=== PATIENT | female | born 1995 | race Native Hawaiian/Other Pacific Islander ===

== ENCOUNTER 2019-03-13 17:49 | Emergency (ER) | payer MEDICAID ==
[2019-03-13] MEDS ORDERED: ONDANSETRON 4 MG/2 ML INJ IV ONE (19:47)
[2019-03-13 20:24] LABS: Alanine Aminotransferase 14 units/L (7-56); Albumin 3.5 g/dL (3.9-5); BUN/Creatinine Ratio 17; Blood Urea Nitrogen 5 mg/dL (7-17); Calcium 8.4 mg/dL (8.4-10.2); Hemolysis Index 4
[2019-03-13 20:26] LABS: Basophils % (Auto) 0.6 % (0.0-1.8); Eosinophils # (Auto) 0.1 K/mm3 (0.0-0.4); Eosinophils % (Auto) 0.9 % (0.0-4.3); Hematocrit 30.9 % (30.3-42.9); Hemoglobin 11.1 gm/dl (10.1-14.3); Lymphocytes # (Auto) 1.5 K/mm3 (1.2-5.4); Lymphocytes % (Auto) 22.4 % (13.4-35.0); Mean Corpuscular HGB Conc 36 % (30-34); Mean Corpuscular Volume 89 fl (79-97); Monocytes # (Auto) 0.3 K/mm3 (0.0-0.8); Platelet Count 194 K/mm3 (140-440); Red Blood Count 3.46 M/mm3 (3.65-5.03); Red Cell Distribution Width 14.6 % (13.2-15.2)
[2019-03-13 20:29] LABS: Bacteria,Urine 2+ /HPF (Negative); Bilirubin,Urine NEG (Negative); Blood,Urine NEG (Negative); Color,Urine Yellow (Yellow); Mucus,Urine FEW /HPF; Protein,Urine <15 mg/dL mg/dL (Negative); Urobilinogen,Urine < 2.0 mg/dL (<2.0)
[2019-03-13 20:36] LABS: INR 1.09 (0.87-1.13)
[2019-03-13 20:37] LABS: Partial Thromboplastin Time 28.2 Sec. (24.2-36.6)
[2019-03-13] MEDS ORDERED: BUTORPHANOL 2 MG/1 ML INJ IV ONE (20:47)
--- NOTE | 2019-03-13 21:13 | Ultrasound Report ---
OB ultrasound FINDINGS: Single fetus is identified in transverse presentation with the head to the maternal right. heart rate is 147 bpm. Placenta is posterior and free of the os. No gross anomalies are seen. A ppropriate measurements reveal an MA of 18 weeks 1 day for an DIANA of 08/13/2019. This correlates with t he clinical dates. Cervix measures 3.6 cm and is closed. No hemorrhage is seen. No abnormality demons trated. Signer Name: Torres Mcclain MD Signed: 03/13/2019 9:09 PM Workstation Name: [id number]
--- NOTE | 2019-03-13 22:32 | Emergency Department Report ---
ED General Adult HPI - General Chief complaint: Abdominal Pain Stated complaint: ABD PAIN Time Seen by Provider: 03/13/19 18:14 Source: patient, EMS Mode of arrival: Stretcher Limitations: No Limitations - History of Present Illness Initial comments: The Patient presents to the emergency department with a chief complaint of lower abdominal pain. Patient states she is approximately 4 months and this is her fourth with 2 live births and one miscarriage. Patient states she is also having some burning with urination but denies vaginal discharge or bleeding. She denies any abdominal trauma or abuse. -: Gradual Location: abdomen Severity scale (0 -10): 5 Consistency: constant Improves with: none Worsens with: none Associated Symptoms: denies other symptoms Treatments Prior to Arrival: none - Related Data Previous Rx's Medication Instructions Recorded Last Taken Type Acetaminophen/Codeine [Tylenol 1 tab PO Q6H PRN #15 tab 03/13/19 Unknown Rx /Codeine # 3 tab] Ondansetron [Zofran Odt] 4 mg PO Q4HR PRN #20 tab.rapdis 03/13/19 Unknown Rx cephALEXin [Keflex] 500 mg PO Q6HR #40 capsule 03/13/19 Unknown Rx Allergies Allergy/AdvReac Type Severity Reaction Status Date / Time No Known Allergies Allergy Unverified 03/06/17 20:55 ED Review of Systems ROS: Stated complaint: ABD PAIN Other details as noted in HPI Comment: All other systems reviewed and negative Constitutional: denies: chills, fever Eyes: denies: eye pain, eye discharge, vision change ENT: denies: ear pain, throat pain Respiratory: denies: cough, shortness of breath, wheezing Cardiovascular: denies: chest pain, palpitations Endocrine: no symptoms reported Gastrointestinal: abdominal pain. denies: nausea, diarrhea Genitourinary: denies: urgency, dysuria, discharge Musculoskeletal: denies: back pain, joint swelling, arthralgia Skin: denies: rash, lesions Neurological: denies: headache, weakness, paresthesias Psychiatric: denies: anxiety, depression Hematological/Lymphatic: denies: easy bleeding, easy bruising ED Past Medical Hx - Past Medical History Hx Hypertension: No Hx Diabetes: No Hx Deep Vein Thrombosis: No Hx Renal Disease: No Hx Sickle Cell Disease: No Hx Seizures: No Hx Asthma: No Hx HIV: No - Social History Smoking Status: Never Smoker Substance Use Type: None - Medications Home Medications: Home Medications Medication Instructions Recorded Confirmed Last Taken Type Acetaminophen/Codeine [Tylenol 1 tab PO Q6H PRN #15 tab 03/13/19 Unknown Rx /Codeine # 3 tab] Ondansetron [Zofran Odt] 4 mg PO Q4HR PRN #20 tab.rapdis 03/13/19 Unknown Rx cephALEXin [Keflex] 500 mg PO Q6HR #40 capsule 03/13/19 Unknown Rx ED Physical Exam - General Limitations: No Limitations General appearance: alert, in no apparent distress - Head Head exam: Present: atraumatic, normocephalic - Eye Eye exam: Present: normal appearance, PERRL, EOMI - ENT ENT exam: Present: mucous membranes moist - Neck Neck exam: Present: normal inspection - Respiratory Respiratory exam: Present: normal lung sounds bilaterally. Absent: respiratory distress - Cardiovascular Cardiovascular Exam: Present: regular rate, normal rhythm. Absent: systolic murmur, diastolic murmur, rubs, gallop - GI/Abdominal GI/Abdominal exam: Present: soft, normal bowel sounds, other (gravid uterus). Absent: distended, tenderness - Extremities Exam Extremities exam: Present: normal inspection - Back Exam Back exam: Present: normal inspection - Neurological Exam Neurological exam: Present: alert, oriented X3, CN II-XII intact. Absent: motor sensory deficit - Psychiatric Psychiatric exam: Present: normal affect, normal mood - Skin Skin exam: Present: warm, dry, intact, normal color. Absent: rash ED Course Vital Signs 03/13/19 03/13/19 18:19 18:22 Temperature 98.6 F 98.6 F Pulse Rate 75 75 Respiratory 20 20 Rate Blood Pressure 107/68 Blood Pressure 107/68 [Left] O2 Sat by Pulse 98 99 Oximetry ED Medical Decision Making - Lab Data Result diagrams: 03/13/19 19:51 03/13/19 19:51 Lab Results 03/13/19 03/13/19 03/13/19 Range/Units 19:51 19:51 19:51 WBC 6.6 (4.5-11.0) K/mm3 RBC 3.46 L (3.65-5.03) M/mm3 Hgb 11.1 (10.1-14.3) gm/dl Hct 30.9 (30.3-42.9) % MCV 89 (79-97) fl MCH 32 (28-32) pg MCHC 36 H (30-34) % RDW 14.6 (13.2-15.2) % Plt Count 194 (140-440) K/mm3 Lymph % (Auto) 22.4 (13.4-35.0) % [place] % (Auto) 5.0 (0.0-7.3) % Eos % (Auto) 0.9 (0.0-4.3) % Baso % (Auto) 0.6 (0.0-1.8) % Lymph # 1.5 (1.2-5.4) K/mm3 [place] # 0.3 (0.0-0.8) K/mm3 Eos # 0.1 (0.0-0.4) K/mm3 Baso # 0.0 (0.0-0.1) K/mm3 Seg Neutrophils % 71.1 H (40.0-70.0) % Seg Neutrophils # 4.7 (1.8-7.7) K/mm3 PT 14.0 (12.2-14.9) Sec. INR 1.09 (0.87-1.13) APTT 28.2 (24.2-36.6) Sec. Sodium 137 (137-145) mmol/L Potassium 3.5 L (3.6-5.0) mmol/L Chloride 107.5 H (98-107) mmol/L Carbon Dioxide 17 L (22-30) mmol/L Anion Gap 16 mmol/L BUN 5 L (7-17) mg/dL Creatinine 0.3 L (0.7-1.2) mg/dL Estimated GFR > 60 ml/min BUN/Creatinine Ratio 17 % Glucose 90 (65-100) mg/dL Calcium 8.4 (8.4-10.2) mg/dL Total Bilirubin 0.70 (0.1-1.2) mg/dL AST 15 (5-40) units/L ALT 14 (7-56) units/L Alkaline Phosphatase 62 (35-129) units/L Total Protein 6.7 (6.3-8.2) g/dL Albumin 3.5 L (3.9-5) g/dL Albumin/Globulin Ratio 1.1 % Urine Color (Yellow) Urine Turbidity (Clear) Urine pH (5.0-7.0) Ur Specific [place] (1.003-1.030) Urine Protein (Negative) mg/dL Urine Glucose (UA) (Negative) mg/dL Urine Ketones (Negative) mg/dL Urine Blood (Negative) Urine Nitrite (Negative) Urine Bilirubin (Negative) Urine Urobilinogen (<2.0) mg/dL Ur Leukocyte Esterase (Negative) Urine WBC (Auto) (0.0-6.0) /HPF Urine RBC (Auto) (0.0-6.0) /HPF U Epithel Cells (Auto) (0-13.0) /HPF Urine Bacteria (Auto) (Negative) /HPF Urine Mucus /HPF Urine Yeast (Budding) /HPF 03/13/19 Range/Units 20:13 WBC (4.5-11.0) K/mm3 RBC (3.65-5.03) M/mm3 Hgb (10.1-14.3) gm/dl Hct (30.3-42.9) % MCV (79-97) fl MCH (28-32) pg MCHC (30-34) % RDW (13.2-15.2) % Plt Count (140-440) K/mm3 Lymph % (Auto) (13.4-35.0) % [place] % (Auto) (0.0-7.3) % Eos % (Auto) (0.0-4.3) % Baso % (Auto) (0.0-1.8) % Lymph # (1.2-5.4) K/mm3 [place] # (0.0-0.8) K/mm3 Eos # (0.0-0.4) K/mm3 Baso # (0.0-0.1) K/mm3 Seg Neutrophils % (40.0-70.0) % Seg Neutrophils # (1.8-7.7) K/mm3 PT (12.2-14.9) Sec. INR (0.87-1.13) APTT (24.2-36.6) Sec. Sodium (137-145) mmol/L Potassium (3.6-5.0) mmol/L Chloride (98-107) mmol/L Carbon Dioxide (22-30) mmol/L Anion Gap mmol/L BUN (7-17) mg/dL Creatinine (0.7-1.2) mg/dL Estimated GFR ml/min BUN/Creatinine Ratio % Glucose (65-100) mg/dL Calcium (8.4-10.2) mg/dL Total Bilirubin (0.1-1.2) mg/dL AST (5-40) units/L ALT (7-56) units/L Alkaline Phosphatase (35-129) units/L Total Protein (6.3-8.2) g/dL Albumin (3.9-5) g/dL Albumin/Globulin Ratio % Urine Color Yellow (Yellow) Urine Turbidity Slightly-cloudy (Clear) Urine pH 6.0 (5.0-7.0) Ur Specific [place] 1.008 (1.003-1.030) Urine Protein <15 mg/dl (Negative) mg/dL Urine Glucose (UA) Neg (Negative) mg/dL Urine Ketones 20 (Negative) mg/dL Urine Blood Neg (Negative) Urine Nitrite Pos (Negative) Urine Bilirubin Neg (Negative) Urine Urobilinogen < 2.0 (<2.0) mg/dL Ur Leukocyte Esterase Lg (Negative) Urine WBC (Auto) 9.0 H (0.0-6.0) /HPF Urine RBC (Auto) 10.0 (0.0-6.0) /HPF U Epithel Cells (Auto) 9.0 (0-13.0) /HPF Urine Bacteria (Auto) 2+ (Negative) /HPF Urine Mucus Few /HPF Urine Yeast (Budding) 1+ /HPF - Radiology Data Radiology results: report reviewed - Medical Decision Making results discussed with patient Critical care attestation.: If time is entered above; I have spent that time in minutes in the direct care of this critically ill patient, excluding procedure time. ED Disposition Clinical Impression: UTI (urinary tract infection), Abdominal pain in Disposition: TO HOME OR SELFCARE Is pt being admited?: No Does the pt Need Aspirin: No Condition: Stable Instructions: Abdominal Pain (ED), Urinary Tract Infection in Women (ED), Abdominal Pain in (ED) Additional Instructions: return if worse Referrals: BASHIR MCGRAWEMERY MD CARSON [Primary Care Provider] - 3-5 Days [facility] [Provider Group] - 3-5 Days Time of Disposition: 22:31
[2019-03-13 22:44] VITALS: BP 110/68
== END 2019-03-13 22:44 | disposition home or self-care (01) ==
LOC: ED 17:49
DX: O23.42 Unspecified infection of urinary tract in pregnancy, second trimester (principal); Z3A.16 16 weeks gestation of pregnancy; Z79.899 Other long term (current) drug therapy
CPT/HCPCS: 36415; 76805; 80053; 81001; 85025; 85610; 85730; 87076; 87086; 87186; 96374; 96375; 99284; J0595; J2405

== ENCOUNTER 2019-07-23 08:58 | Outpatient (CLI) | payer MEDICAID ==
[2019-07-23] MEDS ORDERED: LACTATED RINGERS 1,000 ML ONE (12:03)
[2019-07-23 12:24] VITALS: BP 130/72
[2019-07-23] MEDS ORDERED: LACTATED RINGERS 1,000 ML IV SCH (13:00)
== END 2019-07-23 13:45 | disposition home or self-care (01) ==
LOC: TRG 08:58
PROVIDERS: ATTEND Obstetrics & Gynecology
DX: O62.9 Abnormality of forces of labor, unspecified (principal); Z3A.37 37 weeks gestation of pregnancy
CPT/HCPCS: 59025; 96360; 96361; J7120

== ENCOUNTER 2021-07-24 13:53 | Emergency (ER) | payer MEDICAID ==
[2021-07-24] MEDS ORDERED: ACETAMINOPHEN 500 MG TAB PO ONE (15:38)
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
[2021-07-24 16:56] VITALS: BP 118/78
--- NOTE | 2021-07-25 09:16 | Electrocardiograph Report ---
[facility] Test Date: 2021-07-24 Test Time: 14:05:11 Pat Name: ASHLEY CAMPOS Department: Room: Gender: F Civil Engineering Professional: NURSE : 1995 Requested By: JUNIOR BERG Order Number: [id number] Reading MD: Abby Souza Measurements Intervals [place] Rate: 80 P: -4 HI: 168 QRS: 14 QRSD: 86 T: 14 QT: 378 QTc: 436 Interpretive Statements Sinus rhythm No previous ECG available for comparison Electronically Signed On 07-25-2021 9:15:37 EDT by Abby Souza
== END 2021-07-24 16:56 | disposition home or self-care (01) ==
LOC: EEVIPCON 13:53 → ED 13:53
DX: O26.891 Other specified pregnancy related conditions, first trimester (principal); S20.219A Contusion of unspecified front wall of thorax, initial encounter; S00.33XA Contusion of nose, initial encounter; R45.6 Violent behavior; Z3A.01 Less than 8 weeks gestation of pregnancy; Y08.89XA Assault by other specified means, initial encounter; Y93.9 Activity, unspecified; Y92.89 Other specified places as the place of occurrence of the external cause; Y99.8 Other external cause status
CPT/HCPCS: 93005; 99283

== ENCOUNTER 2021-12-07 15:01 | Outpatient (CLI) | payer MEDICAID ==
--- NOTE | 2021-12-07 17:56 | Ultrasound Report ---
ULTRASOUND BIOPHYSICAL PROFILE INDICATION: VAGINAL BLEEDING ON URINIATION AND PRESSURE - BPP. COMPARISON: None available. FINDINGS: breathing movement = 2 Gross body movement = 2 tone = 2 Qualitative amniotic fluid volume = 2 Total biophysical score = 8/8 Amniotic fluid index is 30.7 cm. Presentation is Breech. heart rate is 1:30 beats per minute. No placental abnormalities are seen. Inferior placenta/cervix is not well-visualized on these images. IMPRESSION: biophysical profile = 12/12 Polyhydramnios. lie is breech. Signer Name: Rohith Goel MD Signed: 12/07/2021 5:52 PM Workstation Name: [id number]
[2021-12-07] MEDS ORDERED: BETAMET ACET/BETAMET NA PH 6 MG/ML INJ 5 ML MDV IM ONE (18:00)
[2021-12-07] MEDS ORDERED: LACTATED RINGERS 500 ML IV ONE (18:00)
[2021-12-07 18:13] VITALS: BP 116/80
[2021-12-07] MEDS ORDERED: ACETAMINOPHEN 500 MG TAB PO SCH (19:01)
[2021-12-07 20:04] LABS: Color,Urine Yellow (Yellow)
[2021-12-07 20:06] LABS: Bilirubin,Urine Negative (Negative); Blood,Urine Negative (Negative); PH,Urine 7.5 (5.0-7.0); Urobilinogen,Urine 0.2 mg/dL (<2.0)
[2021-12-07 20:08] LABS: Bacteria,Urine 4+ /HPF (Negative); Mucus,Urine FEW /HPF
== END 2021-12-07 21:37 | disposition left against medical advice (07) ==
LOC: TRG 15:01 → APU 15:01 → TRG 21:37
PROVIDERS: ATTEND Obstetrics & Gynecology
DX: O40.3XX0 Polyhydramnios, third trimester, not applicable or unspecified (principal); O32.1XX0 Maternal care for breech presentation, not applicable or unspecified; O99.013 Anemia complicating pregnancy, third trimester; D64.9 Anemia, unspecified; Z3A.31 31 weeks gestation of pregnancy
CPT/HCPCS: 76815; 76819; 81001; 96360; 96361; 96372; J0702; J7120

== ENCOUNTER 2022-01-22 20:25 | Inpatient (IN) | payer MEDICAID ==
--- NOTE | 2022-01-22 23:15 | Ultrasound Report ---
ULTRASOUND OBSTETRIC LIMITED ULTRASOUND BIOPHYSICAL PROFILE INDICATION / CLINICAL INFORMATION: R/O Labor. - Clinical Gestational Age (GA) in weeks, days: 37 weeks 6 days TECHNIQUE: Transabdominal. COMPARISON: December 2021 FINDINGS: BREATHING MOVEMENT = 2 GROSS BODY MOVEMENT = 2 TONE = 2 QUALITATIVE AMNIOTIC FLUID VOLUME = 2 TOTAL BIOPHYSICAL SCORE = 8/8 HEART RATE (beats per minute): 140 AMNIOTIC FLUID INDEX (cm) = 14.3 (normal = 7-24 cm) PRESENTATION: Cephalic. ADDITIONAL FINDINGS: None. IMPRESSION: 1. Biophysical Score = 8/8 See above for additional data. Signer Name: Olu Balderas MD Signed: 01/22/2022 11:11 PM Workstation Name: [email or web address]
[2022-01-22] MEDS ORDERED: BUTORPHANOL 2 MG/1 ML INJ IV PRN (23:29)
[2022-01-22] MEDS ORDERED: OXYTOCIN 10 UNIT/1 ML INJ IM PRN (23:29)
[2022-01-22] MEDS ORDERED: TERBUTALINE 1 MG/1 ML INJ SUB-Q PRN (23:29)
[2022-01-22] MEDS ORDERED: MINERAL OIL 30 ML ORAL LIQD PO PRN (23:29)
[2022-01-22] MEDS ORDERED: ePHEDrine SULFATE 50 MG/1 ML INJ IV PRN (23:29)
[2022-01-22] MEDS ORDERED: miSOPROStol 200 MCG TAB PR PRN (23:29)
[2022-01-22] MEDS ORDERED: LOPERAMIDE 2 MG CAP PO PRN (23:29)
[2022-01-22] MEDS ORDERED: ACETAMINOPHEN 325 MG TAB PO PRN (23:29)
[2022-01-22] MEDS ORDERED: METHYLERGONOVINE MALEATE 0.2 MG/ML VIAL IM PRN (23:29)
[2022-01-22] MEDS ORDERED: CARBOPROST TROMETHAMINE 250 MCG/1 ML INJ IM PRN (23:29)
[2022-01-22] MEDS ORDERED: OXYTOCIN DRIP 30 UNITS/500 ML BAG IV SCH (23:45)
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
[2022-01-23 00:35] LABS: Hematocrit 36.6 % (30.3-42.9); Hemoglobin 12.7 gm/dl (10.1-14.3); Mean Corpuscular HGB Conc 35 % (30-34); Mean Corpuscular Volume 79 fl (79-97); Platelet Count 208 K/mm3 (140-440); Red Blood Count 4.61 M/mm3 (3.65-5.03)
[2022-01-23] MEDS: fentaNYL 100 MCG/2 ML INJ IV PRN ×2 (00:58→06:50)
[2022-01-23] MEDS ORDERED: OXYTOCIN DRIP 30 UNITS/500 ML BAG IV SCH (04:00)
[2022-01-23] MEDS ORDERED: ONDANSETRON 4 MG/2 ML INJ IV PRN (06:37)
--- NOTE | 2022-01-23 06:56 | Event Note ---
Date: 01/23/22 S: Feeling contractions, nauseous O: VE /-1, Arom clear. CAT I , Pit at 6mu A: IUP @ 37.6 weeks P: Continue augmentation
[2022-01-23] MEDS ORDERED: ceFAZolin/NS 1 GM/50 ML 1 GM/50 ML BAG IV SCH (08:00)
[2022-01-23] MEDS: LACTATED RINGERS 1,000 ML IV SCH ×2 (08:09→12:09)
[2022-01-23] MEDS ORDERED: DIPHENOXYLATE/ATROPINE TAB PO PRN (09:00)
[2022-01-23] MEDS ORDERED: DIPHENOXYLATE/ATROPINE TAB ONE (09:47)
[2022-01-23 10:11] LABS: Basophils # (Auto) 0.1 K/mm3 (0.0-0.1); Basophils % (Auto) 0.4 % (0.0-1.8); Eosinophils % (Auto) 0.1 % (0.0-4.3); Hematocrit 31.4 % (30.3-42.9); Hemoglobin 10.4 gm/dl (10.1-14.3); Lymphocytes # (Auto) 2.4 K/mm3 (1.2-5.4); Lymphocytes % (Auto) 14.3 % (13.4-35.0); Mean Corpuscular HGB Conc 33 % (30-34); Mean Corpuscular Volume 84 fl (79-97); Monocytes # (Auto) 0.6 K/mm3 (0.0-0.8); Monocytes % (Auto) 3.4 % (0.0-7.3); Platelet Count 273 K/mm3 (140-440); Red Blood Count 3.75 M/mm3 (3.65-5.03); Red Cell Distribution Width 13.9 % (13.2-15.2)
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
--- NOTE | 2022-01-23 10:48 | Ultrasound Report ---
US pelvic limited INDICATION: R/O RETAINED PLACENTA. TECHNIQUE: Limited pelvic ultrasound COMPARISON: 01/22/2022 FINDINGS: Uterus is enlarged consistent with recent measuring 17.6 cm in length. The endometrium is heterogeneous and thick with some internal vascularity, measuring 3 cm in diameter . IMPRESSION: 1. Heterogeneous and thickened endometrium with some internal vascularity which may indicate some ret ained products of conception. Signer Name: Anderson Alvarez MD Signed: 01/23/2022 10:44 AM Workstation Name: [id number]
[2022-01-23] MEDS ORDERED: PROMETHAZINE 25 MG TAB PO PRN (11:00)
[2022-01-23] MEDS ORDERED: LANOLIN/ZINC/DIMETHICONE (LANSINOH) 7 GM TP PRN (11:00)
[2022-01-23] MEDS ORDERED: diphenhydrAMINE 25 MG CAP PO PRN (11:00)
[2022-01-23] MEDS ORDERED: HYDROcodone/ACETAMINOPHEN 5-325 MG TAB PO PRN (11:00)
[2022-01-23] MEDS: IBUPROFEN 800 MG TAB PO SCH ×2 (12:37→23:52)
--- NOTE | 2022-01-23 14:19 | Event Note ---
Date: 01/23/22 Discussed ultrasound findings with patient re possibility of retained placental tissues needing to be surgically removed. Patient was rude but was clear in conveying her refusal to any procedures to reconcile the findings from ultrasonography. She was reassured her autonomy will be respected always.
[2022-01-23] MEDS ORDERED: miSOPROStol 200 MCG TAB PR SCH (16:00)
[2022-01-23] MEDS ORDERED: FERROUS SULFATE 325 MG TAB PO SCH (22:00)
[2022-01-24] MEDS: IBUPROFEN 800 MG TAB PO SCH ×2 (05:02→10:21)
--- NOTE | 2022-01-24 08:36 | Progress Note ---
Assessment and Plan A: PPD # 1 - stable P: Try to get records from [facility] CNM from [facility] states she did not have a GBS done, Last visit was at 32 weeks gestation Discharge home tomorrow Subjective - Subjective Date of service: 01/24/22 Principal diagnosis: PPD # 1 - stable Interval history: Feeling ok, no complaints Patient reports: appetite normal [place]: doing well Objective - Vital Signs Latest vital signs: Vital Signs Temp Pulse Resp BP Pulse Ox Pulse Ox 01/24/22 07:56 98 01/23/22 23:45 98.7 F 99 H 20 100/59 98 01/23/22 20:27 99.2 F 91 H 20 110/71 98 01/23/22 15:30 97 01/23/22 15:19 98.4 F 90 20 110/71 98 01/23/22 13:05 114 H 98 01/23/22 13:04 85 95/57 01/23/22 13:00 87 98 01/23/22 12:55 80 98 01/23/22 12:50 82 98 01/23/22 12:49 83 98/59 01/23/22 12:45 83 98 01/23/22 12:40 83 99 01/23/22 12:35 88 92/62 99 01/23/22 12:30 84 99 01/23/22 12:25 91 H 99 01/23/22 12:20 92 H 87/60 98 01/23/22 12:15 84 99 01/23/22 12:10 94 H 100 01/23/22 12:05 102 H 104/69 99 01/23/22 12:00 82 99 01/23/22 11:55 82 98 01/23/22 11:50 87 96/52 98 01/23/22 11:45 90 99 01/23/22 11:40 89 100 01/23/22 11:35 98.7 F 93 H 18 93/54 96 01/23/22 11:30 89 97 01/23/22 11:25 89 98 01/23/22 11:20 95 H 117/60 98 01/23/22 11:15 99 H 99 01/23/22 11:10 97 H 99 01/23/22 11:05 93 H 93/51 99 01/23/22 11:00 98 H 97 01/23/22 10:55 84 98 01/23/22 10:50 86 98 01/23/22 10:49 91 H 90/51 01/23/22 10:45 80 98 01/23/22 10:40 91 H 99 01/23/22 10:35 89 88/50 98 01/23/22 10:32 83 94/53 01/23/22 10:30 85 98 01/23/22 10:27 78 91/52 01/23/22 10:25 84 98 01/23/22 10:20 91 H 97 01/23/22 10:15 113 H 99 01/23/22 10:10 77 97 01/23/22 10:05 87 96 01/23/22 10:00 93 H 97 01/23/22 09:55 108 H 97 01/23/22 09:50 109 H 99 01/23/22 09:45 148 H 96 01/23/22 09:44 130 H 89/64 01/23/22 09:43 90 01/23/22 09:40 240 H 87 01/23/22 09:37 92 01/23/22 09:32 127 H 97/63 01/23/22 09:31 71 L 01/23/22 09:29 65 74 L 01/23/22 09:26 74 L 01/23/22 09:21 89 98 01/23/22 09:16 112 H 97 01/23/22 09:11 143 H 98 01/23/22 09:05 114 H 93 01/23/22 09:02 81 119/62 92 01/23/22 09:00 86 97 01/23/22 08:55 118 H 97 01/23/22 08:51 103 H 92 01/23/22 08:50 92 H 98 01/23/22 08:45 75 99 01/23/22 08:40 105 H 98 01/23/22 08:35 90 98 Intake and Output 01/23/22 01/24/22 01/24/22 22:59 06:59 14:59 Intake Total 240 300 Output Total 300 Balance -60 300 Intake: Oral 120 300 Intake, Free Water 120 Output: Urine 300 Void 300 Other: Total, Intake Amount 120 300 Total, Output Amount 100 # Voids Self-Catheterization 3 Void 1 - Exam Breasts: Present: deferred Cardiovascular: Present: Regular rate Lungs: Present: Clear to auscultation Abdomen: Present: soft Vulva: both: normal Uterus: Present: fundal height below umbilicus Deep Tendon Reflex Grade: Normal +2 - Labs Labs: Abnormal lab results 01/23/22 Range/Units 10:05 WBC 16.8 H (4.5-11.0) K/mm3 Seg Neutrophils % 81.8 H (40.0-70.0) % Seg Neutrophils # 13.7 H (1.8-7.7) K/mm3
--- NOTE | 2022-01-24 08:37 | Discharge Summary ---
Providers - Providers Date of Admission: 01/22/22 23:29 Date of discharge: 01/25/22 Attending physician: KEO VENTURA MD Primary care physician: KEO VENTURA MD Hospitalization Reason for admission: active labor Delivery: Laceration: none complications: retained placenta (manual removal, trailing membranes), other (PPH) Discharge diagnosis: IUP at term delivered [place] baby: female Hospital course: Had ultrasound done after delivery to look for retained placenta. Pt declined D&C. Quants drawn last night and this morning. Repeat U/S to be done 9/ in am Condition at discharge: Good Disposition: 01 HOME / SELF CARE / HOMELESS Plan - Provider Discharge Summary Activity: routine, no sex for 6 weeks, no strenuous exercise Diet: routine Instructions: routine Additional instructions: [] Smoking cessation referral if applicable(refer to patient education folder for contact #) [] Refer to [facility]'s [facility] Booklet Call your doctor immediately for: * Fever > 100.5 * Heavy vaginal bleeding ( >1 pad per hour) * Severe persistent headache * Shortness of breath * Reddened, hot, painful area to leg or breast * Drainage or odor from incision. * Keep incision clean and dry at all times and follow doctor's instructions regarding bathing/showering - Follow up plan Follow up: KEO VENTURA MD [Primary Care Provider] - 6 Weeks
[2022-01-24] MEDS: PRENATAL VIT27-FE FUMARATE-FOLIC ACID VIT TAB PO SCH (10:21)
[2022-01-24 12:00] LABS: Basophils % (Auto) 0.3 % (0.0-1.8); Eosinophils % (Auto) 0.2 % (0.0-4.3); Lymphocytes # (Auto) 1.4 K/mm3 (1.2-5.4); Lymphocytes % (Auto) 19.6 % (13.4-35.0); Mean Corpuscular HGB Conc 34 % (30-34); Mean Corpuscular Volume 80 fl (79-97); Monocytes # (Auto) 0.3 K/mm3 (0.0-0.8); Monocytes % (Auto) 4.8 % (0.0-7.3); Platelet Count 155 K/mm3 (140-440); Red Blood Count 2.18 M/mm3 (3.65-5.03); Red Cell Distribution Width 13.9 % (13.2-15.2)
[2022-01-24 12:07] LABS: Hematocrit 17.5 % (30.3-42.9); Hemoglobin 5.9 gm/dl (10.1-14.3)
[2022-01-24] MEDS ORDERED: ACETAMINOPHEN 325 MG TAB PO NR (12:20)
[2022-01-24] MEDS ORDERED: diphenhydrAMINE 25 MG CAP PO NR (12:21)
[2022-01-24] MEDS ORDERED: SODIUM CHLORIDE 0.9% 500 ML 500 ML IV NR (13:00)
--- NOTE | 2022-01-24 13:21 | Ultrasound Report ---
ULTRASOUND PELVIS INDICATION / CLINICAL INFORMATION: Clot vs. Retained POC in [place] . TECHNIQUE: Transvaginal. Duplex Color Doppler used: Yes. COMPARISON: Limited pelvic ultrasound performed yesterday. FINDINGS: UTERUS: - Appearance: Enlarged uterus. - Size (cm): 15.8 x 11.8 x 7.7 cm. - Endometrial Complex (if present): Thickened with moderately heterogeneous appearance, similar to pr evious exam. Thickness in cm (if measured) = 3.1 cm. - Mass or cyst: None. - Additional findings: None. RIGHT ADNEXA: The right ovary is not visualized. LEFT ADNEXA: The left ovary is not visualized. URINARY BLADDER: Not well-visualized. FREE FLUID: None. ADDITIONAL FINDINGS: None. IMPRESSION: 1. Thickened, heterogeneous endometrium is again visualized with mild internal vascularity suggesting retained products of conception. Scribed by: Maeve Shafer RDMS, MERYL, ANTHONY Scribed: 01/24/2022 11:14 AM I have reviewed the images, agree with this report, and edited this report as needed. Signer Name: Marty Villalobos MD Signed: 01/24/2022 1:17 PM Workstation Name: [id number]
[2022-01-25 01:37] LABS: Hemoglobin 7.9 gm/dl (10.1-14.3)
[2022-01-25] MEDS: PRENATAL VIT27-FE FUMARATE-FOLIC ACID VIT TAB PO SCH (10:05)
[2022-01-25] MEDS: IBUPROFEN 800 MG TAB PO SCH ×2 (10:05)
[2022-01-25 17:54] VITALS: BP 111/69
== END 2022-01-25 23:10 | disposition home or self-care (01) | DRG 774 ==
LOC: TRG 20:25 → APU 20:27 → EEVIPCON 23:29 → UNDOADMOB 23:29 → INTOOBSV 23:29 → LD 23:29 → TRG 23:29 → OBSVTOIN 23:29 → LD 01-23 10:13 → OBSVTOIN 01-23 10:13 → OB 01-23 15:15 → LD 01-23 15:15
PROVIDERS: ADMIT Obstetrics & Gynecology Gynecology; ATTEND Obstetrics & Gynecology Gynecology
PROC: 10E0XZZ Delivery of Products of Conception, External Approach (ICD-10-PCS; principal; 2022-01-23)
PROC: 10907ZC Drainage of Amniotic Fluid, Therapeutic from Products of Conception, Via Natural or Artificial Opening (ICD-10-PCS; 2022-01-23)
PROC: 30233N1 Transfusion of Nonautologous Red Blood Cells into Peripheral Vein, Percutaneous Approach (ICD-10-PCS; 2022-01-24)
DX: O72.1 Other immediate postpartum hemorrhage (principal); Z37.0 Single live birth; Z3A.37 37 weeks gestation of pregnancy; Z20.822 Contact with and (suspected) exposure to COVID-19; O72.0 Third-stage hemorrhage
CPT/HCPCS: 36415; 76815; 76819; 76830; 76857; 84702; 85014; 85018; 85025; 85027; 86850; 86900; 86901; 86920; 96372; G0378; J3490; J0595; J0690; J2210; J2405; J2590; J3010; J7040; J7120; P9016; U0003